=== PATIENT | male | born 1995 | race African-American/Black ===

== ENCOUNTER 2021-09-06 19:31 | Emergency (ER) | payer OTHER ==
[~2021-09-06] VITALS: Ht 188 cm; Wt 90.0 kg
[2021-09-06] MEDS ORDERED: HALOPERIDOL LACTATE 5MG/ML VIAL IM STA (19:56)
[2021-09-06] MEDS ORDERED: LORAZEPAM 2MG/ML CPJ IM STA (19:56)
[2021-09-06 20:54] LABS: BASOPHILS % 0.5 % (0.0-2.0); EOSINOPHILS % 0.7 % (0.0-5.0); HEMOGLOBIN. 11.7 g/dL (14.0-18.0); LYMPHOCYTES % 12.3 % (20.0-50.0); MEAN CORPUSCULAR HEMOGLOBIN 29.1 pg (28.0-32.0); MEAN CORPUSCULAR VOLUME 89.2 fL (80.0-94.0); MEAN PLATELET VOLUME 9.2 fl (7.4-10.4); MONOCYTES % 14.1 % (2.0-8.0); NEUTROPHILS % 72.4 % (40.0-76.0); PLATELET 311 x1000/uL (130-400); RED BLOOD CELL COUNT 4.03 mill/uL (4.7-6.1); RED CELL DISTRIBUTION WIDTH 14.2 % (11.6-14.6)
[2021-09-06 20:56] LABS: CHLORIDE 107 mEq/L (98-107)
[2021-09-06 21:01] LABS: ETHANOL BLOOD < 10 mg/dL
[2021-09-07] MEDS ORDERED: POTASSIUM CHLORIDE 20MEQ TABLET SR PO NR (01:15)
[2021-09-07 07:15] LABS: CLARITY URINE CLEAR (CLEAR); COLOR URINE YELLOW (YELLOW); KETONES URINE 3+ (NEGATIVE); LEUKOCYTE ESTERASE URINE NEGATIVE (NEGATIVE); NITRITE URINE NEGATIVE (NEGATIVE); OCCULT BLOOD URINE NEGATIVE (NEGATIVE); PH URINE 5.5 (4.5-8.0); PROTEIN URINE 1+ (NEGATIVE); SPECIFIC GRAVITY URINE 1.026 (1.005-1.030)
[2021-09-07 07:28] LABS: *AMPHETAMINES SCREEN URINE PRESUMTIVE POSITIVE (NEGATIVE); *BARBITURATES SCREEN URINE NEGATIVE (NEGATIVE)
[2021-09-07 07:29] LABS: *BENZODIAZEPINES SCREEN URINE PRESUMTIVE POSITIVE (NEGATIVE); *COCAINE SCREEN URINE NEGATIVE (NEGATIVE); CANNABINOID URINE SCREEN PRESUMTIVE POSITIVE (NEGATIVE); METHADONE URINE SCREEN NEGATIVE (NEGATIVE); OPIATES URINE SCREEN NEGATIVE (NEGATIVE); PHENCYCLIDINE URINE SCREEN NEGATIVE (NEGATIVE)
[2021-09-07 15:41] VITALS: BP 106/54
== END 2021-09-07 15:44 | disposition home or self-care (01) ==
LOC: EDBD 19:31 → ER 19:31
DX: F23 Brief psychotic disorder (principal); R26.9 Unspecified abnormalities of gait and mobility; F15.10 Other stimulant abuse, uncomplicated; F13.10 Sedative, hypnotic or anxiolytic abuse, uncomplicated; F16.10 Hallucinogen abuse, uncomplicated; F41.9 Anxiety disorder, unspecified; F17.210 Nicotine dependence, cigarettes, uncomplicated
CPT/HCPCS: 36415; 80053; 80305; 80307; 80320; 80329; 81003; 85025; 96372; 99291; J1630; J2060; G0480